=== PATIENT | male | born 1980 | race Caucasian/White ===

== ENCOUNTER 2018-12-28 19:18 | Emergency (ER) | payer OTHER ==
--- NOTE | 2018-12-28 19:21 | PDOC ---
Rapid Medical Evaluation Time Seen by Provider: 12/28/18 19:20 Medical Evaluation: 12/28/18 19:20 HPI: Lower back pain x2 days B radiculopathy no loss of bowel or bladder function PE:No gross deficits ORDERS:Nothing Discharge Disposition - Diagnosis Back pain - Referrals - Patient Instructions - Post Discharge Activity
[2018-12-28 19:23] VITALS: BP 133/83; PULSE 75; TEMP 98; BMI 36.9
--- NOTE | 2018-12-28 19:31 | PDOC ---
History of Present Illness - General Chief Complaint: Back Pain Stated Complaint: LOWER BACK PAIN Time Seen by Provider: 12/28/18 19:20 History Source: Patient Exam Limitations: No Limitations - History of Present Illness Initial Comments: Patient is a 38-year-old male who complains of lower back pain 2 days. Patient denies injury or trauma. Patient denies previous injury or surgeries to his back. Patient denies history of IV drug use or urinary symptoms. Patient describes the pain as a throb, worse with movement and rates at a 4 out of 10. Patient states he has been attempting 400 mg of ibuprofen without success. Patient denies loss of bowel/bladder control or urinary retention. He denies lower extremity paresthesia. Patient denies any relieving factors. 12/28/18 19:28 Past History - Travel Traveled outside of the country in the last 30 days: No Close contact w/someone who was outside of country & ill: No - Past Medical History Allergies/Adverse Reactions: Allergies Allergy/AdvReac Type Severity Reaction Status Date / Time No Known Allergies Allergy Verified 12/28/18 19:21 Home Medications: Ambulatory Orders NK [No Known Home Medication] 12/28/18 COPD: No - Suicide/Smoking/Psychosocial Hx Smoking History: Never smoked Review of Systems - Review of Systems Able to Perform ROS?: Yes Constitutional: No: Chills, Fever Respiratory: No: Cough Cardiac (ROS): No: Chest Pain Musculoskeletal: Yes: Back Pain *Physical Exam - Vital Signs Last Vital Signs Temp Pulse Resp BP Pulse Ox 98 F 75 18 133/83 99 12/28/18 19:21 12/28/18 19:21 12/28/18 19:21 12/28/18 19:21 12/28/18 19:21 - Physical Exam Comments: Constitutional: VS stated, pt appears in no apparent distress; sitting in chair. Ambulated to examination room, steady gait noted. Patient is obese. Skin: Warm and dry. Intact, no lesions or excoriations. Head: Normocephalic; atraumatic Eyes: conjunctiva pink without injection or discharge. Throat: Oropharynx with pink and moist mucosa. Lungs: Bilateral breath sounds clear upon auscultation. No adventitious breath sounds. Heart: Regular rate and rhythm, S1/S2 auscultated. No murmurs, rubs, or gallops. No visible pulsations, heaves, or lifts on precordium. Abdomen: Soft and non-tender. Bowel sounds present in all 4 quadrants, no hepatosplenomegaly, No bruits auscultated. No guarding or rebound. No masses or visible pulsations present. No suprapubic tenderness. No CVAT. No bruits. Musculoskeletal: Normal curves of cervical, thoracic, and lumbar spine. Full ROM of cervical and lumbar spine. No pain upon palpation to the cervical, thoracic or lumbar spine. I can duplicate the pain by pressing on the paraspinous muscles. Proximal joints normal; neck, arms, hips, knees, and ankles with full range of active and passive motion. Muscles appear symmetric. Sensation intact medially and laterally. No saddle anesthesia. DTRs+2. No tenderness on palpation of spine. 5/5 strength in upper extremities and lower extremity groups. Neurologic: Awake, alert. Conversation fluent. 12/28/18 19:29 Medical Decision Making - Medical Decision Making Pt has no red flag signs warranting imaging or an emergent MRI. 12/28/18 19:30 *DC/Admit/Observation/Transfer Diagnosis at time of Disposition: Back pain Qualifiers: Back pain location: low back pain Chronicity: acute Back pain laterality: bilateral Sciatica presence: without sciatica Qualified Code(s): M54.5 - Low back pain - Discharge Dispostion Disposition: HOME Condition at time of disposition: Good - Referrals - Patient Instructions Printed Discharge Instructions: DI for Low Back Pain Additional Instructions: Take Ibuprofen 600 mg every 6 hours and follow up with your PCP - Post Discharge Activity
== END 2018-12-28 19:46 | disposition home or self-care (01) ==
LOC: JERFT 19:18
DX: M54.5 Low back pain (principal)
CPT/HCPCS: 99281-25